=== PATIENT | female | born 1955 | race Caucasian/White ===

== ENCOUNTER 2016-11-15 12:38 | Observation (INO) | payer MEDICARE, MEDICAID ==
[~2016-11-15] VITALS: Ht 167.6 cm; Wt 136.0 kg
[~2016-11-15 12:38] MED LIST: ACETTAB3 OR; ALENDRONATE70 MG PO; ALLOPURINOL300 MG PO; AMOXICILLIN/CL875 MG PO; AUGMENTIN875TAB OR; BACTRIM DS1 TAB PO; CALCIUM + D PO; CALCIUM500 MG/D PO; CELEXA40 MG OR; CIPRO500 MG PO; CIPROFLOXACN250 MG PO; CIPROFLOXACN500 MG PO; CITALOPRAM40 MG OR; CITRACAL +3 PO; COZAAR25 MG PO; DILAUDID2 MG OR; DIOVAN80 MG OR; EQ IBUPROFEN200 MG PO; FERROUS SULF325 M1 PO; FERROUS SULF325 M2 PO; FLAGYL500 MG OR; FLONASE NASAL50 MCG; FLUCONAZOLE100 MG PO; FREESTYLE LITE TEST; GLIPIZIDE XL2.5 MG PO; GLIPIZIDE5 MG OR; GLIPIZIDE5 MG PO; HYDROCHLOROT50 MG PO; KEFLEX500 MG PO; LEVAQUIN500 MG PO; LEVOTHROID75 MCG PO; LEVOTHYROXIN100 MCG PO; LEVOTHYROXIN112 MC1 PO; LEVOTHYROXIN125 MC1 PO; LEVOTHYROXIN125 MCG PO; LEVOTHYROXIN50 MCG OR; LEVOTHYROXIN75 MC1 PO; LEXAPRO20 MG OR; LISINOPRIL5 MG OR; LOPRESSOR25 MG PO; LORTAB 5 PO; LORTAB 7.57.5 MG PO; LOSARTAN POT25 MG PO; MACROBID100 MG OR; MACRODANTIN100 MG PO; MEDDOSEPAK PO; METFORMIN500 M1 PO; METFORMIN500 M2 PO; METFORMIN500 MG PO; NABUMETONE500 MG PO; NAPROSYN500 MG PO; NITROFUR MAC100 MG PO; NITROFUR MAC50 MG PO; PERSANTINE25 MG PO; PRAVASTATIN20 MG OR; PROBIOTI1 PO; ROCEPHIN 2250 MG/VIA IM; TESSALON200 MG PO; TETRACYCLINE500 MG OR; TYLENOL325 MG OR; ULTRAM50 M1 PO; UROCIT-K 10 PO; VITAMIN D2000 UNI1 PO; VITAMIN D31000 UNI1 PO; VITAMIN D32000 UNIT PO
[2016-11-15 13:09] LABS: HEMATOCRIT 37.6 % (37.0-47.0); HEMOGLOBIN 12.1 g/dl (12.0-16.0); IMMATURE GRANULOCYTES 0.4 % (0.0-1.0); MEAN CELL VOLUME 93.3 fL CALC (80.0-100.0); MEAN CORPUSCULAR HGB CONC 32.2 g/L CALC (32.0-36.0); NEUT# 7.06 thou/uL (2.00-7.15); RED BLOOD COUNT 4.03 mill/uL (4.20-5.60); RED CELL DISTRI WIDTH 15.1 % (11.5-15.5)
[2016-11-15 13:28] LABS: ALBUMIN 4.3 g/dL (3.2-5.0); ALKALINE PHOSPHATASE 104 u/l (38-126); ANION GAP 16 (6-22 (CALC)); BILIRUBIN, TOTAL 0.5 mg/dL (0.0-1.4); BUN 19 mg/dL (8-23); BUN/CREATININE RATIO 27 (12-20 (CALC)); CALCIUM 9.5 mg/dL (8.4-10.2); CARBON DIOXIDE 22 mmol/l (22-30); CHLORIDE 105 mmol/l (95-108); CREATININE 0.7 mg/dL (0.5-1.0); GFR > 60 ML/MIN (>=60 (CALC)); GFR FOR AFR.AMER. > 60 ML/MIN (>=60 (CALC)); GLUCOSE 137 mg/dL (82-115); POTASSIUM 4.1 mmol/l (3.5-5.1); SGOT/AST 26 u/l (9-36); SGPT/ALT 42 u/l (11-66); SODIUM 139 mmol/l (137-146); TOTAL PROTEIN 7.5 g/dL (6.3-8.2)
[2016-11-15 13:40] LABS: MYOGLOBIN 45 ng/mL (0 - 62)
[2016-11-15] MEDS ORDERED: SIMVASTATIN20 MG PO (13:49)
[2016-11-15] MEDS ORDERED: MAGNESIUM250 MG PO (13:51)
[2016-11-15] MEDS ORDERED: B121000 MCG PO (13:52)
[2016-11-15] MEDS ORDERED: IRON18 M1 PO (13:53)
[2016-11-15] MEDS ORDERED: METFORMIN500 MG PO (13:53)
[2016-11-15 15:20] VITALS: BP 133/80
[2016-11-15 19:12] VITALS: BP 129/70
[2016-11-15 23:30] VITALS: BP 112/54
[2016-11-16 04:32] VITALS: BP 121/50
[2016-11-16 05:29] LABS: HEMATOCRIT 33.7 % (37.0-47.0); MEAN CELL VOLUME 93.9 fL CALC (80.0-100.0); MEAN CORPUSCULAR HGB 30.6 pG CALC (26.0-32.0); MEAN CORPUSCULAR HGB CONC 32.6 g/L CALC (32.0-36.0); RED BLOOD COUNT 3.59 mill/uL (4.20-5.60); RED CELL DISTRI WIDTH 15.1 % (11.5-15.5)
[2016-11-16 05:37] LABS: ANION GAP 13 (6-22 (CALC)); BUN 20 mg/dL (8-23); BUN/CREATININE RATIO 25 (12-20 (CALC)); CALCIUM 9.2 mg/dL (8.4-10.2); CALCULATED LDLCHOLESTEROL 79 mg/dL (62-129 (CALC)); CARBON DIOXIDE 25 mmol/l (22-30); CHLORIDE 105 mmol/l (95-108); CHOLESTEROL HDL RATIO 3.2 (<4.4 (CALC)); CREATININE 0.8 mg/dL (0.5-1.0); GFR > 60 ML/MIN (>=60 (CALC)); GFR FOR AFR.AMER. > 60 ML/MIN (>=60 (CALC)); GLUCOSE 101 mg/dL (82-115); HDL CHOLESTEROL 49 mg/dL (>=40); POTASSIUM 4.2 mmol/l (3.5-5.1); SODIUM 139 mmol/l (137-146); TOTAL CHOLESTEROL 157 mg/dl (0-199); TOTAL TRIGLYCERIDES 143 mg/dl (30-149); VLDL CHOLESTROL 29 mg/dl (1-41 (CALC))
[2016-11-16 07:45] VITALS: BP 115/68
[2016-11-16 09:03] VITALS: BP 115/68
== END 2016-11-16 13:00 | disposition home or self-care (01) ==
LOC: ED 12:38 → ED-I 13:38 → ED 14:01 → MS2 14:02
PROVIDERS: Emergency Medicine; ADMIT Internal Medicine; ATTEND Internal Medicine
DX: R07.9 Chest pain, unspecified (principal); I10 Essential (primary) hypertension; E78.5 Hyperlipidemia, unspecified; E11.9 Type 2 diabetes mellitus without complications; E03.9 Hypothyroidism, unspecified; F32.9 Major depressive disorder, single episode, unspecified; E66.01 Morbid (severe) obesity due to excess calories; Z68.42 Body mass index [BMI] 45.0-49.9, adult

== ENCOUNTER 2017-09-30 16:13 | Emergency (ER) | payer MEDICARE, MEDICAID ==
[~2017-09-30] VITALS: Ht 167.6 cm; Wt 135.0 kg
[~2017-09-30 16:13] MED LIST changes: +B121000 MCG PO; +IRON18 M1 PO; +MAGNESIUM250 MG PO; +SIMVASTATIN20 MG PO
[2017-09-30] MEDS ORDERED: PEPCID20 MG PO (17:11)
[2017-09-30] MEDS ORDERED: BENADRYL 50MG C50 MG PO (17:11)
[2017-09-30 17:17] VITALS: BP 120/79
== END 2017-09-30 17:16 | disposition home or self-care (01) ==
LOC: ED 16:13
DX: T63.301A Toxic effect of unspecified spider venom, accidental (unintentional), initial encounter (principal); L29.9 Pruritus, unspecified; E11.9 Type 2 diabetes mellitus without complications; F32.9 Major depressive disorder, single episode, unspecified; Z87.442 Personal history of urinary calculi

== ENCOUNTER 2018-01-21 10:10 | Emergency (ER) | payer MEDICARE, MEDICAID ==
[~2018-01-21] VITALS: Ht 167.6 cm; Wt 132.0 kg
[~2018-01-21 10:10] MED LIST changes: +BENADRYL 50MG C50 MG PO; +PEPCID20 MG PO
[2018-01-21 11:25] VITALS: BP 149/83
[2018-01-21] MEDS ORDERED: LEVOTHYROXIN137 MCG PO (11:29)
[2018-01-21] MEDS ORDERED: METFORMIN500 M2 PO (11:30)
[2018-01-21] MEDS ORDERED: GLIPIZIDE ER10 M1 PO (11:31)
[2018-01-21] MEDS ORDERED: LOSARTAN POT100 MG PO (11:31)
[2018-01-21] MEDS ORDERED: FAMOTIDINE20 M1 PO (11:32)
[2018-01-21] MEDS ORDERED: [UNRECOGNIZED DRUG - OTHER] PO (11:33)
== END 2018-01-21 11:25 | disposition home or self-care (01) ==
LOC: ED 10:10
DX: S01.112A Laceration without foreign body of left eyelid and periocular area, initial encounter (principal); Z29.8 Encounter for other specified prophylactic measures; W26.8XXA Contact with other sharp object(s), not elsewhere classified, initial encounter; Y93.01 Activity, walking, marching and hiking; Y92.009 Unspecified place in unspecified non-institutional (private) residence as the place of occurrence of the external cause; Z91.19 Patient's noncompliance with other medical treatment and regimen

== ENCOUNTER 2021-03-07 11:27 | Emergency (ER) | payer MEDICARE, MEDICAID ==
[~2021-03-07] VITALS: Ht 167.6 cm; Wt 140.0 kg
[~2021-03-07 11:27] MED LIST changes: +FAMOTIDINE20 M1 PO; +GLIPIZIDE ER10 M1 PO; +LEVOTHYROXIN137 MCG PO; +LOSARTAN POT100 MG PO; +[UNRECOGNIZED DRUG - OTHER] PO
[2021-03-07] MEDS ORDERED: TRAMADOL HYDROC50 M1 PO (13:42)
[2021-03-07 14:10] VITALS: BP 158/79
== END 2021-03-07 14:10 | disposition home or self-care (01) ==
LOC: ED 11:27
DX: M25.562 Pain in left knee (principal); I10 Essential (primary) hypertension; E11.9 Type 2 diabetes mellitus without complications; E66.9 Obesity, unspecified; F32.A Depression, unspecified; Z79.84 Long term (current) use of oral hypoglycemic drugs

== ENCOUNTER 2021-04-06 10:45 | Emergency (ER) | payer MEDICARE, MEDICAID ==
[~2021-04-06] VITALS: Ht 167.6 cm; Wt 147.0 kg
[~2021-04-06 10:45] MED LIST changes: -GLIPIZIDE ER10 M1 PO; +GLIPIZIDE5 M2 PO; +METFORMIN HCL500 M2 PO; +TRAMADOL HYDROC50 M1 PO; -[UNRECOGNIZED DRUG - OTHER] PO
[2021-04-06] MEDS ORDERED: KEFLEX500 MG PO (11:27)
[2021-04-06] MEDS ORDERED: GABAPENTIN600 MG PO (11:32)
[2021-04-06] MEDS ORDERED: NAPROXEN500 MG PO (11:32)
[2021-04-06] MEDS ORDERED: ACTOS15 MG PO (11:33)
[2021-04-06] MEDS ORDERED: LIOTHYRONINE5 MCG PO (11:33)
[2021-04-06] MEDS ORDERED: METOPROL TAR25 MG PO (11:33)
[2021-04-06] MEDS ORDERED: ACETAMINOPHEN500 M1 PO (11:34)
[2021-04-06] MEDS ORDERED: CVS SENNA8.6 MG PO (11:35)
[2021-04-06] MEDS ORDERED: DIPHENHYDRAM25 M4 PO (11:36)
[2021-04-06] MEDS ORDERED: SENTRY SENIOR PO (11:36)
[2021-04-06] MEDS ORDERED: D350 MCG PO (11:37)
[2021-04-06 11:38] VITALS: BP 178/70
== END 2021-04-06 11:38 | disposition home or self-care (01) ==
LOC: ED 10:45
DX: R60.0 Localized edema (principal); L08.9 Local infection of the skin and subcutaneous tissue, unspecified; E11.9 Type 2 diabetes mellitus without complications; F32.A Depression, unspecified; Z79.84 Long term (current) use of oral hypoglycemic drugs

== ENCOUNTER 2021-06-28 07:51 | Day surgery (SDC) | payer MEDICARE, MEDICAID ==
[~2021-06-28 07:51] MED LIST changes: +ACETAMINOPHEN500 M1 PO; +ACTOS15 MG PO; +CVS SENNA8.6 MG PO; +D350 MCG PO; +DIPHENHYDRAM25 M4 PO; +GABAPENTIN600 MG PO; +LIOTHYRONINE5 MCG PO; +METOPROL TAR25 MG PO; +NAPROXEN500 MG PO; +SENTRY SENIOR PO
[2021-06-28] MEDS ORDERED: LIDOCAINE PATCH 55 % TOP (09:08)
[2021-06-28] MEDS ORDERED: ZINC50 M1 PO (09:09)
[2021-06-28 11:29] VITALS: BP 140/63
== END 2021-06-28 11:20 | disposition home or self-care (01) ==
LOC: ORM 07:51
PROVIDERS: ATTEND Physical Medicine & Rehabilitation
DX: M23.92 Unspecified internal derangement of left knee (principal); G89.4 Chronic pain syndrome; M25.622 Stiffness of left elbow, not elsewhere classified; E66.01 Morbid (severe) obesity due to excess calories; R26.9 Unspecified abnormalities of gait and mobility
CPT/HCPCS: Q9967

== ENCOUNTER 2021-11-29 07:52 | Day surgery (SDC) | payer MEDICARE, MEDICAID ==
[~2021-11-29] VITALS: Ht 167.6 cm; Wt 132.0 kg
[~2021-11-29 07:52] MED LIST changes: +LIDOCAINE PATCH 55 % TOP; +ZINC50 M1 PO
[2021-11-29 11:05] VITALS: BP 154/71
== END 2021-11-29 10:23 | disposition home or self-care (01) ==
LOC: ORM 07:52
PROVIDERS: ATTEND Physical Medicine & Rehabilitation
DX: M17.12 Unilateral primary osteoarthritis, left knee (principal); S83.92XA Sprain of unspecified site of left knee, initial encounter; M23.92 Unspecified internal derangement of left knee; G89.4 Chronic pain syndrome; M25.662 Stiffness of left knee, not elsewhere classified

== ENCOUNTER 2021-12-19 13:22 | Emergency (ER) | payer MEDICARE, MEDICAID ==
[~2021-12-19] VITALS: Ht 167.6 cm; Wt 141.9 kg
[2021-12-19 13:52] LABS: HEMATOCRIT 34.1 % (37.0-47.0); HEMOGLOBIN 10.7 g/dl (12.0-16.0); IMMATURE GRANULOCYTES 0.4 % (0.0-5.0); MEAN CORPUSCULAR HGB 29.5 pG CALC (26.0-32.0); MEAN CORPUSCULAR HGB CONC 31.4 g/dL CAL (32.0-36.0); NEUT# 5.49 thou/uL (2.00-7.15); RED BLOOD COUNT 3.63 mill/uL (4.20-5.60); RED CELL DISTRI WIDTH 18.8 % (11.5-15.5)
[2021-12-19 14:02] LABS: MEAN CELL VOLUME 93.9 fL CALC (80.0-100.0)
[2021-12-19 15:53] LABS: ALBUMIN 3.8 g/dL (3.2-5.0); ALKALINE PHOSPHATASE 85 u/l (38-126); ANION GAP 13 (6-22 (CALC)); BILIRUBIN, TOTAL 0.3 mg/dL (0.0-1.4); BUN 25 mg/dL (8-23); BUN/CREATININE RATIO 28 (12-20 (CALC)); CARBON DIOXIDE 27 mmol/l (22-30); CHLORIDE 100 mmol/l (95-108); CREATININE 0.9 mg/dL (0.5-1.0); GFR FOR AFR.AMER. > 60 ML/MIN (>=60 (CALC)); GFR OTHER RACES > 60 ML/MIN (>=60 (CALC)); POTASSIUM 4.3 mmol/l (3.5-5.1); SGOT/AST 22 u/l (9-36); SODIUM 136 mmol/l (137-146); TOTAL PROTEIN 6.7 g/dL (6.3-8.2)
[2021-12-19 15:57] LABS: URINE BILIRUBIN - DIPSTICK NEGATIVE (NEGATIVE); URINE BLOOD DIPSTICK MODERATE (NEGATIVE); URINE COLOR YELLOW; URINE GLUCOSE - DIPSTICK >=1000 mg/dL (NEGATIVE); URINE KETONE NEGATIVE (NEGATIVE); URINE LEUK ESTERASE NEGATIVE (NEGATIVE); URINE PH 5.5 (4.5-8.0); URINE PROTEIN - DIPSTICK NEGATIVE (NEG-TRACE); URINE SPECIFIC GRAVITY 1.025; URINE UROBILINOGEN - DIPSTICK 0.2 E.U./dL (0.2)
[2021-12-19 16:03] LABS: URINE NITRITE - DIPSTICK NEGATIVE (Negative)
[2021-12-19 16:10] LABS: URINE MUCUS FEW hpf (NONE-FEW); URINE RBC 0-2 RBC/hpf (0-5)
[2021-12-19 16:16] VITALS: BP 147/70
== END 2021-12-19 16:29 | disposition home or self-care (01) ==
LOC: ED 13:22
PROVIDERS: Emergency Medicine
DX: R53.1 Weakness (principal); E11.9 Type 2 diabetes mellitus without complications; F32.A Depression, unspecified; Z79.84 Long term (current) use of oral hypoglycemic drugs

== ENCOUNTER 2022-01-06 19:51 | Emergency (ER) | payer MEDICARE, MEDICAID ==
[2022-01-06] VITALS (10 sets, daily range): BP systolic 118–165; BP diastolic 66–87
[~2022-01-06] VITALS: Ht 167.6 cm; Wt 135.8 kg
[~2022-01-06 19:51] MED LIST changes: +KLONOPIN0.5 MG PO
[2022-01-06 21:00] LABS: HEMATOCRIT 34.6 % (37.0-47.0); HEMOGLOBIN 11.1 g/dl (12.0-16.0); IMMATURE GRANULOCYTES 0.9 % (0.0-5.0); MEAN CELL VOLUME 93.5 fL CALC (80.0-100.0); MEAN CORPUSCULAR HGB CONC 32.1 g/dL CAL (32.0-36.0); NEUT# 3.01 thou/uL (2.00-7.15); RED BLOOD COUNT 3.7 mill/uL (4.20-5.60); RED CELL DISTRI WIDTH 17.5 % (11.5-15.5)
[2022-01-06 21:09] LABS: ALBUMIN 3.8 g/dL (3.2-5.0); ALKALINE PHOSPHATASE 95 u/l (38-126); ANION GAP 10 (6-22 (CALC)); BUN 17 mg/dL (8-23); BUN/CREATININE RATIO 16 (12-20 (CALC)); CARBON DIOXIDE 30 mmol/l (22-30); CHLORIDE 98 mmol/l (95-108); CREATININE 1.1 mg/dL (0.5-1.0); GFR FOR AFR.AMER. 60 ML/MIN (>=60 (CALC)); GFR OTHER RACES 49 ML/MIN (>=60 (CALC)); POTASSIUM 3.7 mmol/l (3.5-5.1); SGOT/AST 32 u/l (9-36); SODIUM 134 mmol/l (137-146)
[2022-01-06 21:21] LABS: BILIRUBIN, TOTAL 0.3 mg/dL (0.0-1.4); MYOGLOBIN 117 ng/mL (0 - 62)
[2022-01-06 23:19] LABS: URINE BILIRUBIN - DIPSTICK NEGATIVE (NEGATIVE); URINE BLOOD DIPSTICK SMALL (NEGATIVE); URINE COLOR YELLOW; URINE GLUCOSE - DIPSTICK NEGATIVE (NEGATIVE); URINE KETONE NEGATIVE (NEGATIVE); URINE PROTEIN - DIPSTICK NEGATIVE (NEG-TRACE); URINE SPECIFIC GRAVITY 1.015; URINE UROBILINOGEN - DIPSTICK 0.2 E.U./dL (0.2)
[2022-01-06 23:40] LABS: URINE NITRITE - DIPSTICK NEGATIVE (Negative)
[2022-01-06 23:49] LABS: URINE BACTERIA FEW hpf; URINE EPITHELIAL CELLS MODERATE EPI/hpf (0-FEW); URINE LEUK ESTERASE NEGATIVE (NEGATIVE); URINE WBC 0-2 WBC/hpf (0-5)
[2022-01-07] VITALS (11 sets, daily range): BP systolic 126–161; BP diastolic 60–75
[2022-01-07] MEDS ORDERED: PAXLOVID PO (04:44)
[2022-01-07] MEDS ORDERED: NAPROXEN500 MG PO (04:44)
[2022-01-07] MEDS ORDERED: KEFLEX500 MG PO (05:56)
== END 2022-01-07 08:20 | disposition home or self-care (01) ==
LOC: ED 19:51
PROVIDERS: Emergency Medicine
DX: M25.562 Pain in left knee (principal); N39.0 Urinary tract infection, site not specified; U07.1 COVID-19; I10 Essential (primary) hypertension; E11.9 Type 2 diabetes mellitus without complications; F32.A Depression, unspecified; Z79.84 Long term (current) use of oral hypoglycemic drugs

== ENCOUNTER 2022-01-12 12:53 | Emergency (ER) | payer MEDICARE, MEDICAID ==
[~2022-01-12] VITALS: Ht 167.6 cm; Wt 136.0 kg
[~2022-01-12 12:53] MED LIST changes: +PAXLOVID PO
[2022-01-12 13:44] LABS: HEMATOCRIT 33.2 % (37.0-47.0); HEMOGLOBIN 10.5 g/dl (12.0-16.0); IMMATURE GRANULOCYTES 0.5 % (0.0-5.0); MEAN CELL VOLUME 93.5 fL CALC (80.0-100.0); MEAN CORPUSCULAR HGB 29.6 pG CALC (26.0-32.0); MEAN CORPUSCULAR HGB CONC 31.6 g/dL CAL (32.0-36.0); NEUT# 3.27 thou/uL (2.00-7.15); RED BLOOD COUNT 3.55 mill/uL (4.20-5.60); RED CELL DISTRI WIDTH 16.5 % (11.5-15.5)
[2022-01-12 13:56] LABS: ALBUMIN 3.5 g/dL (3.2-5.0); ALKALINE PHOSPHATASE 90 u/l (38-126); BUN 20 mg/dL (8-23); BUN/CREATININE RATIO 18 (12-20 (CALC)); CHLORIDE 97 mmol/l (95-108); CREATININE 1.1 mg/dL (0.5-1.0); GFR FOR AFR.AMER. 60 ML/MIN (>=60 (CALC)); GFR OTHER RACES 49 ML/MIN (>=60 (CALC)); LIPASE 32 u/l (23-300); POTASSIUM 4.4 mmol/l (3.5-5.1); SGOT/AST 33 u/l (9-36); SODIUM 131 mmol/l (137-146); TOTAL PROTEIN 6.4 g/dL (6.3-8.2)
[2022-01-12 13:57] LABS: ANION GAP 15 (6-22 (CALC)); BILIRUBIN, TOTAL 0.6 mg/dL (0.0-1.4); CARBON DIOXIDE 23 mmol/l (22-30)
[2022-01-12 16:26] LABS: URINE BILIRUBIN - DIPSTICK NEGATIVE (NEGATIVE); URINE BLOOD DIPSTICK LARGE (NEGATIVE); URINE COLOR YELLOW; URINE GLUCOSE - DIPSTICK NEGATIVE (NEGATIVE); URINE KETONE NEGATIVE (NEGATIVE); URINE LEUK ESTERASE NEGATIVE (NEGATIVE); URINE PH 5.5 (4.5-8.0); URINE PROTEIN - DIPSTICK NEGATIVE (NEG-TRACE); URINE SPECIFIC GRAVITY <=1.005; URINE UROBILINOGEN - DIPSTICK 0.2 E.U./dL (0.2)
[2022-01-12 16:31] LABS: URINE NITRITE - DIPSTICK NEGATIVE (Negative)
[2022-01-12 16:41] LABS: URINE SQUAMOUS EPITHELIAL CELL FEW EPI/hpf (0-FEW)
[2022-01-12 17:30] VITALS: BP 105/56
[2022-01-12] MEDS ORDERED: NAPROXEN250 MG PO (18:39)
[2022-01-12 19:04] VITALS: BP 105/56
== END 2022-01-12 19:20 | disposition home or self-care (01) ==
LOC: ED 12:53
PROVIDERS: Nurse Practitioner
DX: M79.652 Pain in left thigh (principal); M79.651 Pain in right thigh; E11.9 Type 2 diabetes mellitus without complications; F32.9 Major depressive disorder, single episode, unspecified; Z79.84 Long term (current) use of oral hypoglycemic drugs; Z86.16 Personal history of COVID-19
CPT/HCPCS: Q9967

== ENCOUNTER 2022-03-04 15:15 | Observation (INO) | payer MEDICARE, MEDICAID ==
[~2022-03-04] VITALS: Ht 167.6 cm; Wt 130.0 kg
[2022-03-04] VITALS (11 sets, daily range): BP systolic 107–186; BP diastolic 74–102
[~2022-03-04 15:15] MED LIST changes: -LOSARTAN POT100 MG PO; +LOSARTAN POTASS1 POW PO; +NAPROXEN250 MG PO
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
[2022-03-04 15:55] LABS: BASO% 0.2 % (0-3); EOS% 1.7 % (0-8); HEMATOCRIT 36.1 % (37.0-47.0); HEMOGLOBIN 11.2 g/dl (12.0-16.0); IMMATURE GRANULOCYTES 0.1 % (0.0-5.0); MEAN CELL VOLUME 92.3 fL CALC (80.0-100.0); MEAN CORPUSCULAR HGB 28.6 pG CALC (26.0-32.0); MONO% 5.3 % (2-13); NEUT# 7.39 thou/uL (2.00-7.15); NEUT% 81.7 % (42-76); RED BLOOD COUNT 3.91 mill/uL (4.20-5.60); RED CELL DISTRI WIDTH 14.9 % (11.5-15.5)
[2022-03-04 16:17] LABS: ALBUMIN 3.9 g/dL (3.2-5.0); ALKALINE PHOSPHATASE 110 u/l (38-126); BUN 15 mg/dL (8-23); BUN/CREATININE RATIO 22 (12-20 (CALC)); CHLORIDE 101 mmol/l (95-108); CREATININE 0.7 mg/dL (0.5-1.0); GFR FOR AFR.AMER. > 60 ML/MIN (>=60 (CALC)); GFR OTHER RACES > 60 ML/MIN (>=60 (CALC)); LIPASE 24 u/l (23-300); POTASSIUM 3.8 mmol/l (3.5-5.1); SGOT/AST 24 u/l (9-36)
[2022-03-04 16:19] LABS: ANION GAP 8 (6-22 (CALC)); BILIRUBIN, TOTAL 0.3 mg/dL (0.0-1.4); CARBON DIOXIDE 33 mmol/l (22-30); SODIUM 138 mmol/l (137-146)
--- NOTE | 2022-03-04 19:19 | NUR ---
pt up to the bathroom for urine sample. stand by assist
[2022-03-04 19:51] LABS: URINE BILIRUBIN - DIPSTICK NEGATIVE (NEGATIVE); URINE BLOOD DIPSTICK TRACE-INTACT (NEGATIVE); URINE COLOR YELLOW; URINE GLUCOSE - DIPSTICK 250 mg/dL (NEGATIVE); URINE KETONE TRACE mg/dL (NEGATIVE); URINE LEUK ESTERASE NEGATIVE (NEGATIVE); URINE PROTEIN - DIPSTICK NEGATIVE (NEG-TRACE); URINE UROBILINOGEN - DIPSTICK 0.2 E.U./dL (0.2)
[2022-03-04 19:52] LABS: URINE NITRITE - DIPSTICK NEGATIVE (Negative)
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
[2022-03-05] VITALS (9 sets, daily range): BP systolic 118–172; BP diastolic 52–97
--- NOTE | 2022-03-05 00:01 | NUR ---
telemetry report rec'd per izabel , sr 94.
--- NOTE | 2022-03-05 04:00 | NUR ---
tele report rec'd per izabel corea, sr hr 88
--- NOTE | 2022-03-05 07:52 | NUR ---
PT RESTING IN LOW FOWLERS POSITION. PT A/O ASSESSMENT AND VS COMPLETED. HEART RHYTHM ON TELE RESPIRATIONS ON ROOM AIR. IV SITE NOTED FLUIDS INFUSING. PT DENIES ADDITIONAL NEEDS AT THE TIME ALL SAFETY PRECAUTIONS IN PLACE CALL LIGHT INREACH.
[2022-03-05 11:42] LABS: BASO% 0.5 % (0-3); EOS% 3.7 % (0-8); HEMOGLOBIN 9.8 g/dl (12.0-16.0); MEAN CELL VOLUME 92.5 fL CALC (80.0-100.0); MEAN CORPUSCULAR HGB 28.3 pG CALC (26.0-32.0); MEAN CORPUSCULAR HGB CONC 30.6 g/dL CAL (32.0-36.0); MONO% 8.5 % (2-13); NEUT# 4.16 thou/uL (2.00-7.15); NEUT% 69.3 % (42-76); RED BLOOD COUNT 3.46 mill/uL (4.20-5.60); RED CELL DISTRI WIDTH 15.3 % (11.5-15.5)
[2022-03-05 11:50] LABS: ALBUMIN 3.2 g/dL (3.2-5.0); ALKALINE PHOSPHATASE 84 u/l (38-126); ANION GAP 8 (6-22 (CALC)); BILIRUBIN, TOTAL 0.2 mg/dL (0.0-1.4); BUN 13 mg/dL (8-23); BUN/CREATININE RATIO 19 (12-20 (CALC)); CARBON DIOXIDE 27 mmol/l (22-30); CHLORIDE 104 mmol/l (95-108); CREATININE 0.7 mg/dL (0.5-1.0); GFR FOR AFR.AMER. > 60 ML/MIN (>=60 (CALC)); GFR OTHER RACES > 60 ML/MIN (>=60 (CALC)); POTASSIUM 3.6 mmol/l (3.5-5.1); SGOT/AST 25 u/l (9-36); SODIUM 135 mmol/l (137-146); TOTAL PROTEIN 5.8 g/dL (6.3-8.2)
--- NOTE | 2022-03-05 11:57 | NUR ---
PT REFUSED INSULIN PROVIDER INFORMED. PT STATED NEEDS PO MEDS .
--- NOTE | 2022-03-05 15:54 | NUR ---
PT RESTING IN HIGH FOWLERS POSITION. PT DENIES ADDITIONAL NEEDS PT HAS NEW IV SITE CHARTED. ALL SAFETY PRECAUTIONS IN PLACE.
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
[2022-03-06 04:29] VITALS: BP 140/55
[2022-03-06 07:03] VITALS: BP 150/67
[2022-03-06 07:04] VITALS: BP 150/67
--- NOTE | 2022-03-06 07:57 | NUR ---
PT RESTING IN HIGH FOWLERS POSITION. PT A/OX3 ASSESSMENT COMPLETED. PT STATES SMALL BM YESTERDAY . PT HEART RHYTHM NORMAL . RESPIRAITONS ON ROOM AIR . IV SITE TO RFA. S.L PT DENIES ADDITIONAL NEEDS. PT TO HAVE SOMETHING FOR BM . ALL SAFETY PRECAUTIONS IN PLACE CALL LIGHT INREACH.
[2022-03-06 09:55] LABS: BASO% 0.3 % (0-3); EOS% 3.5 % (0-8); HEMATOCRIT 34.5 % (37.0-47.0); HEMOGLOBIN 10.9 g/dl (12.0-16.0); IMMATURE GRANULOCYTES 0.2 % (0.0-5.0); LYMPH% 17.2 % (15-41); MEAN CELL VOLUME 90.8 fL CALC (80.0-100.0); MEAN CORPUSCULAR HGB 28.7 pG CALC (26.0-32.0); MEAN CORPUSCULAR HGB CONC 31.6 g/dL CAL (32.0-36.0); MONO% 6.3 % (2-13); NEUT# 4.52 thou/uL (2.00-7.15); NEUT% 72.5 % (42-76); RED BLOOD COUNT 3.8 mill/uL (4.20-5.60)
[2022-03-06 10:20] VITALS: BP 137/65
[2022-03-06 10:41] LABS: ALBUMIN 3.8 g/dL (3.2-5.0); ALKALINE PHOSPHATASE 96 u/l (38-126); ANION GAP 11 (6-22 (CALC)); BILIRUBIN, TOTAL 0.2 mg/dL (0.0-1.4); BUN 11 mg/dL (8-23); BUN/CREATININE RATIO 17 (12-20 (CALC)); CARBON DIOXIDE 31 mmol/l (22-30); CHLORIDE 101 mmol/l (95-108); CREATININE 0.7 mg/dL (0.5-1.0); GFR FOR AFR.AMER. > 60 ML/MIN (>=60 (CALC)); GFR OTHER RACES > 60 ML/MIN (>=60 (CALC)); POTASSIUM 4.1 mmol/l (3.5-5.1); SGOT/AST 19 u/l (9-36); SODIUM 139 mmol/l (137-146); TOTAL PROTEIN 6.4 g/dL (6.3-8.2)
--- NOTE | 2022-03-06 13:30 | NUR ---
PT COVID SWAB COLLECTED PT BLADDER SCANNED 33ML NO RETENTION NOTED.
[2022-03-06 14:50] VITALS: BP 147/89
[2022-03-06] MEDS ORDERED: KLONOPIN0.5 MG PO (15:15)
--- NOTE | 2022-03-06 16:17 | NUR ---
PT TO BE DC. PT POSSIBLE TIME FRAME [id number]
--- NOTE | 2022-03-06 18:40 | NUR ---
Discharge instructions given. Patient verbalizes understanding of same. Discharged in stable condition via Wheelchair to *Other with staff. All belongings sent with pt. IV REMOVED TELE REMOVED.
== END 2022-03-06 19:05 ==
LOC: ED 15:15 → ED-I 19:50 → ED 20:20 → MS2 20:21
PROVIDERS: Emergency Medicine; Internal Medicine; ADMIT Internal Medicine; ATTEND Internal Medicine
DX: K59.04 Chronic idiopathic constipation (principal); I10 Essential (primary) hypertension; E11.9 Type 2 diabetes mellitus without complications; E03.9 Hypothyroidism, unspecified; F32.A Depression, unspecified; Z79.84 Long term (current) use of oral hypoglycemic drugs; Z20.822 Contact with and (suspected) exposure to COVID-19
CPT/HCPCS: Q9967

== ENCOUNTER 2022-05-30 19:50 | Emergency (ER) | payer MEDICARE, MEDICAID ==
[~2022-05-30] VITALS: Ht 167.6 cm; Wt 320.0 kg
[2022-05-30 20:36] LABS: BASO% 0.3 % (0-3); EOS% 2.9 % (0-8); HEMATOCRIT 31.9 % (37.0-47.0); HEMOGLOBIN 9.8 g/dl (12.0-16.0); IMMATURE GRANULOCYTES 0.3 % (0.0-5.0); LYMPH% 23.1 % (15-41); MEAN CELL VOLUME 90.6 fL CALC (80.0-100.0); MEAN CORPUSCULAR HGB 27.8 pG CALC (26.0-32.0); MEAN CORPUSCULAR HGB CONC 30.7 g/dL CAL (32.0-36.0); MONO% 8.6 % (2-13); NEUT# 4.27 thou/uL (2.00-7.15); NEUT% 64.8 % (42-76); RED BLOOD COUNT 3.52 mill/uL (4.20-5.60); RED CELL DISTRI WIDTH 18.4 % (11.5-15.5)
[2022-05-30 20:49] LABS: ALBUMIN 3.7 g/dL (3.2-5.0); ALKALINE PHOSPHATASE 88 u/l (38-126); ANION GAP 10 (6-22 (CALC)); BUN 24 mg/dL (8-23); BUN/CREATININE RATIO 27 (12-20 (CALC)); CARBON DIOXIDE 30 mmol/l (22-30); CHLORIDE 103 mmol/l (95-108); CREATININE 0.9 mg/dL (0.5-1.0); GFR FOR AFR.AMER. > 60 ML/MIN (>=60 (CALC)); GFR OTHER RACES > 60 ML/MIN (>=60 (CALC)); LIPASE 42 u/l (23-300); POTASSIUM 4.6 mmol/l (3.5-5.1); SGOT/AST 22 u/l (9-36); SODIUM 137 mmol/l (137-146); TOTAL PROTEIN 6.5 g/dL (6.3-8.2)
[2022-05-30 20:57] LABS: BILIRUBIN, TOTAL 0.1 mg/dL (0.02-1.3)
[2022-05-30] MEDS ORDERED: TORADOL PO (22:09)
[2022-05-30] MEDS ORDERED: PROTONIX40 M2 PO (22:09)
[2022-05-30 22:13] VITALS: BP 138/63
== END 2022-05-30 22:25 ==
LOC: ED 19:50
PROVIDERS: Family Medicine
DX: R07.9 Chest pain, unspecified (principal); R10.13 Epigastric pain; E11.9 Type 2 diabetes mellitus without complications; I87.2 Venous insufficiency (chronic) (peripheral); Z87.442 Personal history of urinary calculi; Z79.84 Long term (current) use of oral hypoglycemic drugs

== ENCOUNTER 2022-06-20 07:38 | Day surgery (SDC) | payer MEDICARE, MEDICAID ==
[~2022-06-20] VITALS: Ht 167.6 cm; Wt 111.6 kg
[~2022-06-20 07:38] MED LIST changes: +PROTONIX40 M2 PO; +TORADOL PO
[2022-06-20 11:20] VITALS: BP 134/76
== END 2022-06-20 10:33 | disposition home or self-care (01) ==
LOC: ORM 07:38
PROVIDERS: ATTEND Physical Medicine & Rehabilitation
DX: G89.4 Chronic pain syndrome (principal); M22.42 Chondromalacia patellae, left knee; M25.462 Effusion, left knee; M17.12 Unilateral primary osteoarthritis, left knee
CPT/HCPCS: Q9967

== ENCOUNTER 2022-07-25 07:27 | Observation (INO) | payer MEDICARE, MEDICAID ==
[2022-07-25] VITALS (9 sets, daily range): BP systolic 116–163; BP diastolic 56–84
[~2022-07-25] VITALS: Ht 167.6 cm; Wt 145.7 kg
--- NOTE | 2022-07-25 07:27 | NUR ---
PT TO ROOM VIA EMS. TRANSFER BY STAFF TO STRETCHER.
[2022-07-25 07:52] LABS: BASO% 0.2 % (0-3); EOS% 2.6 % (0-8); HEMOGLOBIN 10.3 g/dl (12.0-16.0); IMMATURE GRANULOCYTES 0.3 % (0.0-5.0); LYMPH% 20.5 % (15-41); MEAN CELL VOLUME 94.7 fL CALC (80.0-100.0); MEAN CORPUSCULAR HGB 28.7 pG CALC (26.0-32.0); MEAN CORPUSCULAR HGB CONC 30.3 g/dL CAL (32.0-36.0); NEUT# 4.42 thou/uL (2.00-7.15); NEUT% 71.4 % (42-76); RED BLOOD COUNT 3.59 mill/uL (4.20-5.60)
[2022-07-25 08:03] LABS: ALBUMIN 3.5 g/dL (3.2-5.0); ALKALINE PHOSPHATASE 90 u/l (38-126); ANION GAP 10 (6-22 (CALC)); BUN 23 mg/dL (8-23); BUN/CREATININE RATIO 26 (12-20 (CALC)); CARBON DIOXIDE 29 mmol/l (22-30); CHLORIDE 105 mmol/l (95-108); CREATININE 0.9 mg/dL (0.5-1.0); GFR FOR AFR.AMER. > 60 ML/MIN (>=60 (CALC)); GFR OTHER RACES > 60 ML/MIN (>=60 (CALC)); POTASSIUM 4.4 mmol/l (3.5-5.1); SGOT/AST 17 u/l (9-36); SODIUM 140 mmol/l (137-146); TOTAL PROTEIN 6.1 g/dL (6.3-8.2)
[2022-07-25 08:11] LABS: BILIRUBIN, TOTAL 0.2 mg/dL (0.02-1.3)
--- NOTE | 2022-07-25 08:12 | NUR ---
Reassessment of patient completed. No distress noted.
[2022-07-25 09:02] LABS: URINE BILIRUBIN - DIPSTICK NEGATIVE (NEGATIVE); URINE BLOOD DIPSTICK NEGATIVE (NEGATIVE); URINE COLOR YELLOW; URINE GLUCOSE - DIPSTICK NEGATIVE (NEGATIVE); URINE KETONE NEGATIVE (NEGATIVE); URINE LEUK ESTERASE NEGATIVE (NEGATIVE); URINE PROTEIN - DIPSTICK NEGATIVE (NEG-TRACE); URINE SPECIFIC GRAVITY 1.025; URINE UROBILINOGEN - DIPSTICK 0.2 E.U./dL (0.2)
[2022-07-25 09:03] LABS: URINE NITRITE - DIPSTICK NEGATIVE (Negative)
--- NOTE | 2022-07-25 10:14 | NUR ---
Reassessment of patient completed. No distress noted.
--- NOTE | 2022-07-25 12:25 | NUR ---
Reassessment of patient completed. No distress noted.
--- NOTE | 2022-07-25 13:25 | NUR ---
Admission Note Report Given to: FRANK NOLASCO Transported by: X Wheelchair Stretcher Transported with: X Nurse Transporter X Patent IV O2 Psychology Assistant Location: ICU X MS2
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
== END 2022-07-25 19:00 | disposition left against medical advice (07) ==
LOC: ED 07:27 → ED-I 12:00 → ED 12:44 → MS2 12:45
PROVIDERS: Family Medicine; ADMIT Internal Medicine; ATTEND Internal Medicine
DX: H53.8 Other visual disturbances (principal); R29.810 Facial weakness; M79.89 Other specified soft tissue disorders; E11.9 Type 2 diabetes mellitus without complications; F32.A Depression, unspecified; Z79.84 Long term (current) use of oral hypoglycemic drugs; Z20.822 Contact with and (suspected) exposure to COVID-19